=== PATIENT | female | born 1980 ===

== ENCOUNTER 2022-12-18 10:44 | Inpatient (IN) | payer OTHER ==
[~2022-12-18] VITALS: Ht 170.2 cm; Wt 81.6 kg
[2022-12-22] MEDS ORDERED: LEVOFLOXACIN250 MG PO (09:53)
== END 2022-12-22 10:36 | disposition home or self-care (01) | DRG 743 ==
LOC: OB/GYN 12-21 11:00 → O/R 12-21 15:17 → OB/GYN 12-21 20:34
PROVIDERS: ADMIT Specialist; ATTEND Specialist
PROC: 0UT64ZZ Resection of Left Fallopian Tube, Percutaneous Endoscopic Approach (ICD-10-PCS; 2022-12-21)
PROC: 0UT94ZZ Resection of Uterus, Percutaneous Endoscopic Approach (ICD-10-PCS; principal; 2022-12-21 16:30)
DX: D25.2 Subserosal leiomyoma of uterus (principal); Z20.822 Contact with and (suspected) exposure to COVID-19

== ENCOUNTER 2022-12-29 21:55 | Emergency (ER) | payer OTHER ==
[~2022-12-29] VITALS: Ht 170.2 cm; Wt 81.6 kg
[~2022-12-29 21:55] MED LIST: LEVOFLOXACIN250 MG PO
[2022-12-30] MEDS ORDERED: CEPHALEXIN500 MG PO (02:47)
== END 2022-12-30 02:54 ==
LOC: ER 21:55
DX: R53.81 Other malaise (principal); R30.0 Dysuria; R53.83 Other fatigue